=== PATIENT | male | born 1960 | race Caucasian/White ===

== ENCOUNTER → 2016-08-01 | Outpatient (CLI) | payer OTHER, MEDICARE ==
[2016-08-01 12:08] LABS: BUN 16 mg/dl (7-24); CARBON DIOXIDE 28 mmol/L (21-32); CHLORIDE 105 mmol/L (98-107); EST GLOM FILT AFRICAN AMERICAN > 60 ml/min; GLUCOSE 107 mg/dL (65-99); MAGNESIUM 2.1 mg/dL (1.5-2.1); POTASSIUM 4.8 mmol/L (3.5-5.1); SODIUM 139 mmol/L (136-145)
[2016-08-01 12:52] LABS: HEMOGLOBIN A1c 6.1 % (4.8-5.6)
[2016-08-01 13:05] LABS: FOLIC ACID 16.75 ng/mL (>5.38)
== END | disposition home or self-care (01) ==
LOC: LAB 11:27
PROVIDERS: Internal Medicine
DX: N18.2 Chronic kidney disease, stage 2 (mild) (principal); G47.62 Sleep related leg cramps; D50.9 Iron deficiency anemia, unspecified; R73.02 Impaired glucose tolerance (oral)

== ENCOUNTER → 2016-11-03 | Outpatient (CLI) | payer OTHER, MEDICARE ==
[2016-11-03 10:26] LABS: BASO # 0.1 10*3/uL (0.0-0.1); BASO % 0.8 % (0.0-1.0); EOS # 0.2 10*3/uL (0.0-0.4); EOS % 1.9 % (1.0-4.0); HEMATOCRIT 45.1 % (42.0-52.0); HEMOGLOBIN 14.9 g/dl (14.0-18.0); LYMPH # 2.9 10*3/uL (1.3-4.4); LYMPH % 32.7 % (27.0-41.0); MEAN CELL VOLUME 93.4 fl (80.0-94.0); MEAN CORPUSCULAR HGB 30.8 pg (27.0-31.0); MEAN PLATELET VOLUME 9.8 fl (9.6-12.3); MONO # 0.7 10*3/uL (0.1-1.0); MONO % 8.2 % (3.0-9.0); NEUT # 4.9 10*3/uL (2.3-7.9); NEUT % 55.9 % (47.0-73.0); PLATELET COUNT AUTOMATED 355 10*3/uL (130-400); RED BLOOD COUNT 4.83 10*6/uL (4.50-5.90); RED CELL DISTRI WIDTH 13.2 % (0-14.5); WHITE BLOOD COUNT 8.8 10*3/uL (4.8-10.8)
[2016-11-03 10:51] LABS: ALBUMIN 3.9 gm/dl (3.1-4.5); BILIRUBIN, TOTAL 0.6 mg/dl (0.2-1.0); BUN 20 mg/dl (7-24); CARBON DIOXIDE 27 mmol/L (21-32); CHLORIDE 105 mmol/L (98-107); CHOLESTEROL 172 mg/dL (<200); EST GLOM FILT AFRICAN AMERICAN > 60 ml/min; GLUCOSE 103 mg/dL (65-99); POTASSIUM 4.4 mmol/L (3.5-5.1); SGOT/AST 20 IU/L (3-35); SODIUM 136 mmol/L (136-145); TOTAL PROTEIN 7.8 gm/dL (6.4-8.2)
[2016-11-03 10:53] LABS: ALKALINE PHOSPHATASE 42 U/L (45-117); BILIRUBIN, DIRECT 0.2 mg/dL (0.0-0.2); HDL CHOLESTEROL 44 mg/dl (40-60); LDL CHOLESTEROL 99 mg/dL (9-159); SGPT/ALT 39 U/L (12-78); TRIGLYCERIDES 145 mg/dl (<150); VLDL CHOLESTEROL 29 mg/dL (6-40)
[2016-11-03 10:55] LABS: HEMOGLOBIN A1c 6.2 % (4.8-5.6)
== END | disposition home or self-care (01) ==
LOC: LAB 10:05
PROVIDERS: Internal Medicine
DX: E11.22 Type 2 diabetes mellitus with diabetic chronic kidney disease (principal); N18.1 Chronic kidney disease, stage 1; E55.9 Vitamin D deficiency, unspecified; E78.4 Other hyperlipidemia; D63.1 Anemia in chronic kidney disease

== ENCOUNTER → 2017-04-25 | Outpatient (CLI) | payer OTHER, MEDICARE ==
[2017-04-25 12:05] LABS: BILIRUBIN, DIRECT 0.2 mg/dL (0.0-0.2); CREATININE 1.52 mg/dL (0.70-1.30); POTASSIUM 4.5 mmol/L (3.5-5.1); TOTAL PROTEIN 7.7 gm/dL (6.4-8.2)
== END | disposition home or self-care (01) ==
LOC: LAB 11:08
PROVIDERS: Internal Medicine
DX: N18.1 Chronic kidney disease, stage 1 (principal); R73.02 Impaired glucose tolerance (oral); E78.4 Other hyperlipidemia; Z79.1 Long term (current) use of non-steroidal anti-inflammatories (NSAID)

== ENCOUNTER → 2017-05-17 | Outpatient (CLI) | payer OTHER, MEDICARE | END | disposition home or self-care (01) | LOC: RAD 10:23 | DX: M17.12 Unilateral primary osteoarthritis, left knee (principal); R23.3 Spontaneous ecchymoses; M25.562 Pain in left knee; M50.323 Other cervical disc degeneration at C6-C7 level; Z96.651 Presence of right artificial knee joint ==

== ENCOUNTER → 2017-07-27 | Outpatient (CLI) | payer OTHER, MEDICARE | END | disposition home or self-care (01) | LOC: RAD 09:33 | DX: M18.0 Bilateral primary osteoarthritis of first carpometacarpal joints (principal) ==

== ENCOUNTER → 2019-03-11 | Day surgery (SDC) | payer OTHER, MEDICARE ==
[~2019-03-11] VITALS: Ht 170.1 cm; Wt 101.6 kg
[~2019-03-11] MED LIST: METFORMIN HYDR500 MG PO; Percocet 325 MG1 TAB PO; SIMVASTATIN40 MG PO; TIZANIDINE HCL4 MG PO; ZOLPIDEM TART10 MG PO
[2019-03-11 11:08] VITALS: BP 136/86
[2019-03-11 12:25] VITALS: BP 102/83
[2019-03-11 12:40] VITALS: BP 117/61
[2019-03-11 12:55] VITALS: BP 123/75
== END | disposition home or self-care (01) ==
LOC: SDC 03-07 11:45
DX: Z12.11 Encounter for screening for malignant neoplasm of colon (principal); E11.9 Type 2 diabetes mellitus without complications; E78.00 Pure hypercholesterolemia, unspecified; E78.5 Hyperlipidemia, unspecified; K57.30 Diverticulosis of large intestine without perforation or abscess without bleeding; F17.210 Nicotine dependence, cigarettes, uncomplicated; E66.9 Obesity, unspecified; Z68.35 Body mass index [BMI] 35.0-35.9, adult; Z79.899 Other long term (current) drug therapy; Z98.890 Other specified postprocedural states

== ENCOUNTER → 2019-03-18 | Outpatient (CLI) | payer OTHER, MEDICARE | END | disposition home or self-care (01) | LOC: US 06:16 | DX: R74.8 Abnormal levels of other serum enzymes (principal) ==

== ENCOUNTER → 2019-05-23 | Outpatient (CLI) | payer OTHER, MEDICARE ==
[2019-05-23 10:17] LABS: HEMATOCRIT 44.2 % (42.0-52.0); HEMOGLOBIN 14.1 g/dl (14.0-18.0); MEAN CELL VOLUME 95.7 fl (80.0-94.0); MEAN CORPUSCULAR HGB 30.5 pg (27.0-31.0); MEAN CORPUSCULAR HGB CONC 31.9 g/dl (33.0-37.0); MEAN PLATELET VOLUME 9.9 fl (9.6-12.3); RED BLOOD COUNT 4.62 10*6/uL (4.50-5.90); RED CELL DISTRI WIDTH 12.7 % (0-14.5); WHITE BLOOD COUNT 7.4 10*3/uL (4.8-10.8)
[2019-05-23 10:22] LABS: ALBUMIN 3.9 gm/dl (3.1-4.5); BUN 15 mg/dl (7-24); CHLORIDE 110 mmol/L (98-107); CHOLESTEROL 178 mg/dL (<200); POTASSIUM 4.6 mmol/L (3.5-5.1); SGOT/AST 61 IU/L (3-35); SGPT/ALT 87 U/L (12-78); SODIUM 140 mmol/L (136-145); TOTAL PROTEIN 7.6 gm/dL (6.4-8.2); TRIGLYCERIDES 161 mg/dl (<150); VLDL CHOLESTEROL 32 mg/dL (6-40)
[2019-05-23 10:32] LABS: ALKALINE PHOSPHATASE 66 U/L (45-117); HDL CHOLESTEROL 43 mg/dl (40-60); LDL CHOLESTEROL 103 mg/dL (9-159)
== END | disposition home or self-care (01) ==
LOC: LAB 09:32
PROVIDERS: Physician Assistant
DX: E11.9 Type 2 diabetes mellitus without complications (principal)

== ENCOUNTER → 2020-09-27 | Outpatient (CLI) | payer OTHER, MEDICARE | END | disposition home or self-care (01) | LOC: US 07:25 | PROVIDERS: ATTEND Nurse Practitioner Family | DX: K76.0 Fatty (change of) liver, not elsewhere classified (principal); K74.60 Unspecified cirrhosis of liver ==

== ENCOUNTER → 2021-01-24 | Outpatient (CLI) | payer OTHER, MEDICARE | END | disposition home or self-care (01) | LOC: CARD 10:12 | PROVIDERS: ATTEND Internal Medicine Cardiovascular Disease | DX: I25.10 Atherosclerotic heart disease of native coronary artery without angina pectoris (principal); E78.5 Hyperlipidemia, unspecified; R74.8 Abnormal levels of other serum enzymes; E11.9 Type 2 diabetes mellitus without complications; Z72.0 Tobacco use ==

== ENCOUNTER → 2022-03-21 | Outpatient (CLI) | payer OTHER, MEDICARE | END | disposition home or self-care (01) | LOC: RAD 10:52 | PROVIDERS: ATTEND Nurse Practitioner Gerontology | DX: I70.201 Unspecified atherosclerosis of native arteries of extremities, right leg (principal); M25.862 Other specified joint disorders, left knee ==

== ENCOUNTER → 2023-02-26 | Outpatient (CLI) | payer OTHER | END | disposition home or self-care (01) | LOC: CT 08:28 | PROVIDERS: ATTEND Physician Assistant | DX: J43.9 Emphysema, unspecified (principal); I25.10 Atherosclerotic heart disease of native coronary artery without angina pectoris; R91.8 Other nonspecific abnormal finding of lung field; K76.0 Fatty (change of) liver, not elsewhere classified; D35.02 Benign neoplasm of left adrenal gland; F17.210 Nicotine dependence, cigarettes, uncomplicated ==

== ENCOUNTER → 2023-05-29 | Outpatient (CLI) | payer OTHER ==
[~2023-05-29] MED LIST changes: +REPATHA SU140 MG/1 M PO; +Regadenoson 0.4 MG/5 ML SYR IV ONE; +Technetium Tc 99M Tetrofosmi 0.23 MG KIT IJ SCH
== END | disposition home or self-care (01) ==
LOC: CARD 01:54
PROVIDERS: ATTEND Internal Medicine Cardiovascular Disease
DX: I70.213 Atherosclerosis of native arteries of extremities with intermittent claudication, bilateral legs (principal); R94.31 Abnormal electrocardiogram [ECG] [EKG]; I25.10 Atherosclerotic heart disease of native coronary artery without angina pectoris; E11.9 Type 2 diabetes mellitus without complications; R07.89 Other chest pain; R06.09 Other forms of dyspnea

== ENCOUNTER 2024-10-10 15:35 | Inpatient (IN) | payer OTHER ==
[~2024-10-10] VITALS: Ht 170 cm; Wt 98.0 kg
[~2024-10-10 15:35] MED LIST changes: -Regadenoson 0.4 MG/5 ML SYR IV ONE; -Technetium Tc 99M Tetrofosmi 0.23 MG KIT IJ SCH
[2024-10-10 15:53] VITALS: BP 119/71
[2024-10-10 16:17] LABS: BASO # 0.0 10*3/uL (0.0-0.1); BASO % 0.3 % (0.0-1.0); EOS # 0.0 10*3/uL (0.0-0.4); EOS % 0.6 % (1.0-4.0); MEAN CELL VOLUME 87.5 fl (80.0-94.0); MEAN CORPUSCULAR HGB 30.2 pg (27.0-31.0); MEAN PLATELET VOLUME 8.3 fl (9.6-12.3); MONO # 0.6 10*3/uL (0.1-1.0); MONO % 8.3 % (3.0-9.0); NEUT # 5.2 10*3/uL (2.3-7.9); NEUT % 72.8 % (47.0-73.0); NUCLEATED RED BLOOD CELL 0.0 % (0.0-0.0); NUCLEATED RED BLOOD CELL 0.0 10*3/uL (0.0-0.0); PLATELET COUNT AUTOMATED 319 10*3/uL (130-400); RED CELL DISTRI WIDTH 11.9 % (0-14.5)
[2024-10-10 16:42] LABS: BUN 9 mg/dl (9-23); SGPT/ALT 38 U/L (5-49)
[2024-10-10 16:45] LABS: ETHYL ALCOHOL < 3.0 mg/dl (<3)
[2024-10-10] MEDS ORDERED: Ondansetron Hydrochloride 4 MG/2 ML VIAL IV ONE (17:15)
[2024-10-10] MEDS ORDERED: SODIUM CHLORIDE 0.9% 1,000 ML IV ONE (17:15)
[2024-10-10] MEDS ORDERED: PRILOSEC20 M1 PO (17:21)
[2024-10-10 18:16] VITALS: BP 147/67
[2024-10-10] MEDS ORDERED: ACETAMINOPHEN 325 MG TAB PO PRN (20:00)
[2024-10-10] MEDS ORDERED: ACETAMINOPHEN 650 MG SUPP R PRN (20:00)
[2024-10-10 20:21] LABS: BUN 8 mg/dl (9-23)
[2024-10-10] MEDS ORDERED: IOHEXOL 300 MG/ML 100 ML VIAL IV ONE (20:40)
[2024-10-10] MEDS ORDERED: MAGNESIUM OXIDE 400 MG TAB PO SCH (22:00)
[2024-10-10 22:09] LABS: BILIRUBIN Negative (Negative); BLOOD Negative (Negative); CLARITY Clear (Clear); COLOR Yellow (Yellow); KETONE 2+ (Negative); LEUKO ESTERASE Negative (Negative); NITRITE Negative (Negative); PH 6.5 (4.5-8.0); SPECIFIC GRAVITY 1.025 (1.001-1.030); UROBILINOGEN 1.0 E.U./dl (0.0-1.0)
[2024-10-10 22:31] LABS: BACTERIA TRACE
[2024-10-10 22:37] VITALS: BP 154/87
[2024-10-11] VITALS: BP 157/95
[2024-10-11] MEDS ORDERED: ZOLPIDEM TARTRATE 10 MG TAB PO SCH ×2 (01:05→22:00)
[2024-10-11 05:06] LABS: BUN 7 mg/dl (9-23); LDL CHOLESTEROL 40 mg/dL (9-159); SGPT/ALT 35 U/L (5-49)
[2024-10-11 06:19] LABS: MEAN CELL VOLUME 87.3 fl (80.0-94.0); MEAN CORPUSCULAR HGB 30.5 pg (27.0-31.0); MEAN PLATELET VOLUME 9.1 fl (9.6-12.3); NUCLEATED RED BLOOD CELL 0.0 % (0.0-0.0); NUCLEATED RED BLOOD CELL 0.0 10*3/uL (0.0-0.0); PLATELET COUNT AUTOMATED 351 10*3/uL (130-400); RED CELL DISTRI WIDTH 12.0 % (0-14.5)
[2024-10-11 06:28] LABS: MANUAL DIFF REFLEX YES
[2024-10-11 07:10] LABS: PLATELET SUFFICIENCY NORMAL (NORMAL)
[2024-10-11 07:24] LABS: VITAMIN D, 25-HYDROXY 33.8 ng/mL (30-100)
[2024-10-11 08:20] VITALS: BP 156/72
[2024-10-11 10:19] LABS: BUN 8 mg/dl (9-23)
[2024-10-11] MEDS ORDERED: IOHEXOL 300 MG/ML 100 ML VIAL IV ONE (10:30)
[2024-10-11] MEDS ORDERED: SODIUM CHLORIDE 0.9% 1,000 ML IV ONE (10:35)
[2024-10-11] MEDS ORDERED: IOHEXOL 300 MG/ML 100 ML VIAL ONE (10:52)
[2024-10-11 13:30] VITALS: BP 166/83
[2024-10-11 13:32] LABS: BUN 7 mg/dl (9-23)
[2024-10-11 13:55] VITALS: BP 163/91
[2024-10-11 16:00] VITALS: BP 145/91
[2024-10-11] MEDS ORDERED: SODIUM CHLORIDE 1 GM TAB PO SCH (17:00)
[2024-10-11 20:00] VITALS: BP 145/85
[2024-10-11 20:00] LABS: BUN 7 mg/dl (9-23)
[2024-10-11 23:31] LABS: BUN 7 mg/dl (9-23)
[2024-10-12] VITALS: BP 147/76
[2024-10-12 03:25] LABS: BUN 7 mg/dl (9-23)
[2024-10-12 04:00] VITALS: BP 151/73
[2024-10-12 07:18] LABS: BUN 7 mg/dl (9-23)
[2024-10-12 08:00] VITALS: BP 156/72
[2024-10-12] MEDS ORDERED: SODIUM CHLORIDE 1 GM TAB PO SCH (10:00)
[2024-10-12 12:00] VITALS: BP 151/85
[2024-10-12 14:31] LABS: BUN 10 mg/dl (9-23)
[2024-10-12 16:00] VITALS: BP 157/86
[2024-10-12 18:17] LABS: BUN 10 mg/dl (9-23)
[2024-10-12 20:00] VITALS: BP 123/71
[2024-10-13] MEDS ORDERED: OMEPRAZOLE 20 MG CAP PO SCH (06:00)
== END 2024-10-12 20:45 | disposition short-term general hospital (02) | DRG 645 ==
LOC: ED 15:35 → EDHOLD 19:21 → ICCU 10-11 13:31
PROVIDERS: Internal Medicine Nephrology; Nurse Practitioner Family; Student in an Organized Health Care Education/Training Program; ADMIT Family Medicine; ATTEND Family Medicine
DX: E22.2 Syndrome of inappropriate secretion of antidiuretic hormone (principal); R91.8 Other nonspecific abnormal finding of lung field; E87.8 Other disorders of electrolyte and fluid balance, not elsewhere classified; E83.42 Hypomagnesemia; D64.9 Anemia, unspecified; R74.01 Elevation of levels of liver transaminase levels; E78.2 Mixed hyperlipidemia; I10 Essential (primary) hypertension; E11.65 Type 2 diabetes mellitus with hyperglycemia; K21.9 Gastro-esophageal reflux disease without esophagitis; F17.210 Nicotine dependence, cigarettes, uncomplicated; E66.9 Obesity, unspecified; Z96.651 Presence of right artificial knee joint; Z82.49 Family history of ischemic heart disease and other diseases of the circulatory system; Z79.899 Other long term (current) drug therapy; Z68.33 Body mass index [BMI] 33.0-33.9, adult